=== PATIENT | female | born 1985 | race Caucasian/White ===

== ENCOUNTER 2017-01-07 05:46 | Emergency (ER) | payer SELFPAY ==
[2017-01-07 05:57] VITALS: BP 122/82; RESP 20
--- NOTE | 2017-01-07 06:06 | C.PDOC ---
History Of Present Illness patient yawned and dislocated her mandible., no trauma. Throbbing pain, unable to close her mouth Time Seen by Provider: 01/07/17 06:03 Chief Complaint (Nursing): Dental Pain History Per: Patient History/Exam Limitations: no limitations Onset/Duration Of Symptoms: Hrs Current Symptoms Are (Timing): Still Present Severity: Moderate Pain Scale Rating Of: 5 Quality: Positive for: Tightness Recent travel outside of the [place]: No Additional History Per: Family Past Medical History Reviewed: Historical Data, Nursing Documentation, Vital Signs Vital Signs: Last Vital Signs Temp 97.6 F 01/07/17 05:53 Pulse 81 01/07/17 05:53 Resp 20 01/07/17 05:53 BP 122/82 01/07/17 05:53 Pulse Ox 100 01/07/17 05:53 Family History: States: No Known Family Hx - Social History Hx Alcohol Use: No Hx Substance Use: No - Immunization History Hx Tetanus Toxoid Vaccination: No Hx Influenza Vaccination: No Hx Pneumococcal Vaccination: No Review Of Systems Constitutional: Negative for: Fever, Chills ENT: Positive for: Mouth Pain ED Course And Treatment O2 Sat by Pulse Oximetry: 100 Pulse Ox Interpretation: Normal Progress Note: under direct pressure applied by me, the mandible was redused in anatomical position. pt tolerated the procedure well Disposition Counseled Patient/Family Regarding: Studies Performed, Diagnosis, Need For Followup - Disposition Referrals: [facility] [Outside] [facility] [Outside] Disposition: HOME/ ROUTINE Disposition Time: 06:03 Condition: IMPROVED Instructions: Mandibular Dislocation (ED) - Clinical Impression Clinical Impression: Dislocated mandible
[2017-01-07 06:13] VITALS: PULSE 88; TEMP 98; O2SAT 97
== END 2017-01-07 06:23 | disposition home or self-care (01) ==
LOC: C.ER 05:46
DX: S03.00XA Dislocation of jaw, unspecified side, initial encounter (principal); X58.XXXA Exposure to other specified factors, initial encounter; Y92.009 Unspecified place in unspecified non-institutional (private) residence as the place of occurrence of the external cause

== ENCOUNTER 2017-09-21 10:38 | Emergency (ER) | payer OTHER ==
[2017-09-21 11:41] VITALS: BMI 32.4
--- NOTE | 2017-09-21 13:38 | US ---
PROCEDURE: Obstetrical ultrasound examination HISTORY: A1GDM, Limited care COMPARISON: Not available TECHNIQUE: Transabdominal FINDINGS: The examination demonstrates a single live intrauterine gestation in cephalic presentation. The heart rate is 132 beats per minute. A grossly normal quantity of amniotic fluid is visualized. A posterior placenta is identified. There is no evidence of placenta previa. The cervix measures 2.7 cm in length and is closed. biometry yields an average ultrasound age of 35 weeks 4 days. The ALLEN by ultrasound is 10/22/2017. ALLEN by LMP is 09/28/2017. The estimated weight is 2798 g. Limited review of anatomy demonstrates a 4 chamber heart. There is fluid distending the stomach and urinary bladder. Two normal kidneys are demonstrated. A three-vessel umbilical cord is identified. The anterior abdominal wall is intact. Biophysical profile examination yields a score of 8 out of 8. IMPRESSION: Single live intrauterine gestation of approximately 35 weeks 4 days. ALLEN 10/22/2017. EFW 04/21/1990 8 g. heart rate 132 beats per minute. Cervix 2.7 cm closed. No previa. Cephalic presentation. Posterior placenta. Biophysical profile score 8 out of 8.
--- NOTE | 2017-09-21 16:31 | OBHP ---
Datetime: 09/21/2017 11:45 IP Adm Impression: , intrauterine ; No Active Labor IP Admit Plan: Observation/Evaluation; Discharge home Admit Comment, IP Provider: This is a private patient of Dr. Justine Clark 31 y.o. , LMP 12/22/16, ALLEN 09/28/18, EGA 39, here for NST due to A1GDM. (+) AFM, denies L OF, VB, Ctx. care: Dr. Justine Clark x 2-3, previously Dr. Dawkins. Initial care, Maria Victoria - in the [facility], since 06/2017. Noted for GDM. 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 No h/o STIs or fibroids PMH: denies PSH: denies NKDA Meds: PNV Soc Hx: denies tobacco, illlicit drug or EtOH use. x 6 years. Unemployed. Fam Hx: Mother alive 55 - HTN.. Father alive 56 DM. No known fam h/o cancer. P.E.: as above. Obese, in NAD. Awake, alert, oriented to time, person and place. Pleasant and coop ertive. - F.S. at 1100 hors = 78mg/dL. Patient ate breakfsat at 0900 hours Assessment: 31 y.o. P1, 39w, AGDM - apparently well-controlled. Late to caer in the [place]. Category 1 tracing/ NST reactive. Patient is clinically stable. Plan: 1) OB ultrasound with BPP 2) Observe - as per Dr. Clark Addendum: 1335 hours - BPS 8/8 (AIDEE 13.02 cm); posterior placenta, EFW 2798 grams; cephalic. Plan: 1) Discharge patient home 2) Reviewed S/S laobr 3) Keep scheduled appointment 09/27/17 4) Anticipate IOL 09/28/17, if no spontaneous onset of labor - as per, and discussed with, Dr. Clark Pelvic Type - PN: Adequate Extremities - PN: Normal Abdomen - PN: Normal Back - PN: Normal Breast - PN: Not Done Lungs - PN: Normal Heart - PN: Normal Thyroid - PN: Not Done Neurologic - PN: Normal HEENT - PN: Normal General - PN: Normal Presentation-Admit: Vertex FHR - Baseline A Provider: 135 Membranes, Provider: Intact Contraction Comments Provider: irritability Comments, ACOG Physical Exam: Abdomen: Gravid; soft. non tender. Fundal height 40cm All other systems reviewed and are negative Gestation - Est Wks by US: 39.0 EGA AdmitDate IP: 39.0 Vital Signs Provider: Reviewed IP Chief Complaint: evaluation NICHD Variability Prov Fetus A: Moderate 6-25bpm NICHD Accel Fetus A IP Provider: 15X15 FHR Category Provider Fetus A: Category I NICHD Decel Fetus A IP Provider: None Dilatation, Provider: 0 Effacement, Provider: 0 Station, Provider: high Genitourinary Exam: Normal DTRs - PN: Not Done
[2017-09-21 17:44] VITALS: BP 117/62; PULSE 87; RESP 18; TEMP 97.9; O2SAT 96
== END 2017-09-21 13:32 | disposition home or self-care (01) ==
LOC: C.EROB 10:38
DX: Z36.89 Encounter for other specified antenatal screening (principal)

== ENCOUNTER 2017-09-28 07:42 | Inpatient (IN) | payer OTHER ==
[2017-09-29] MEDS ORDERED: Lactated Ringer's 1,000 ML IV SCH (11:30)
[2017-09-29 12:35] LABS: SQUAMOUS EPITHIAL 23 /hpf (0-5); URINE BACTERIA OCC (<OCC); URINE BILIRUBIN NEGATIVE (NEGATIVE); URINE BLOOD NEGATIVE (NEGATIVE); URINE CLARITY Hazy (Clear); URINE COLOR Yellow (YELLOW); URINE GLUCOSE (UA) NORMAL (Normal); URINE LEUKOCYTE ESTERASE TRACE Leu/uL (Negative); URINE NITRATE NEGATIVE (NEGATIVE); URINE PROTEIN NEGATIVE (NEGATIVE); URINE UROBILINOGEN NORMAL mg/dL (0.2-1.0)
[2017-09-29 12:40] LABS: BASO % 0.2 % (0.0-2.0); EOS # 0.1 K/uL (0.0-0.7); EOS % 0.8 % (0.0-4.0); HEMOGLOBIN 10.9 g/dL (11.0-16.0); LYMPH # 1.6 K/uL (1.0-4.3); LYMPH % 16.4 % (20.0-40.0); MEAN CELL VOLUME 88.1 fL (81.0-99.0); MEAN CORPUSCULAR HEMOGLOBIN 29.8 pg (27.0-31.0); MEAN CORPUSCULAR HGB CONC 33.9 g/dL (33.0-37.0); MEAN PLATELET VOLUME 9.5 fL (7.2-11.7); MONO # 0.6 K/uL (0.0-0.8); MONO % 5.6 % (0.0-10.0); NEUT # 7.7 K/uL (1.8-7.0); RBC 3.66 Mil/uL (3.80-5.20); RED CELL DISTRIBUTION WIDTH 14.9 % (11.5-14.5)
--- NOTE | 2017-09-29 12:54 | OBADHP ---
Datetime: 09/29/2017 12:45 IP Adm Impression Other: GDMA1 Admit Comment, IP Provider: 31yo with IUP at 40.1wks sent here for induction of labor by Dr Srikanth veronica for GDMA1 at term. Pt reports good movements, denies VB or LOF. Denies any current medica l problems. Previous uncomplicated vaginal delivery in [facility] in 2011. [place]- Q 5, FHR- Category 1, Cx-1-2/40-50/-3. Assessment: IUP at 40wks ,GDMA1 for Induction of labor. Plan as per Dr Clark. Admit to LND. Cervidil for cervical ripening. Monitor the progress of labor. Pelvic Type - PN: Adequate Extremities - PN: Normal Abdomen - PN: Normal Back - PN: Normal Breast - PN: Normal Lungs - PN: Normal Heart - PN: Normal Thyroid - PN: Normal Neurologic - PN: Normal HEENT - PN: Normal General - PN: Normal Presentation-Admit: Vertex FHR - Baseline A Provider: 130 Membranes, Provider: Intact Comments, ACOG Physical Exam: Abd: Soft, Nt, Bs - present Gestation - Est Wks by US: 40.0 Vital Signs Provider: Reviewed IP Chief Complaint: Scheduled induction of labor NICHD Variability Prov Fetus A: Moderate 6-25bpm NICHD Accel Fetus A IP Provider: 15X15 FHR Category Provider Fetus A: Category I NICHD Decel Fetus A IP Provider: None Dilatation, Provider: 1-2 Effacement, Provider: 40-50 Station, Provider: -3 Genitourinary Exam: Normal DTRs - PN: Normal EGA AdmitDate IP: 40.1 IP Adm Impression: Term, intrauterine ; No Active Labor IP Admit Plan: Admit to unit; Initiate labor induction protocol Datetime: 09/21/2017 11:45 Contraction Comments Provider: irritability
[2017-09-29 13:11] LABS: ALBUMIN 3.4 g/dL (3.5-5.0); ALT/SGPT 19 U/L (9-52); AST/SGOT 22 U/L (14-36); BLOOD UREA NITROGEN 11 mg/dL (7-17); CALCIUM 8.3 mg/dl (8.6-10.4); GFR AFRICAN-AMERICAN > 60; GFR NON-AFRICAN AMERICAN > 60
[2017-09-29 13:38] LABS: ALB/GLOB RATIO 1.1 (1.0-2.1)
[2017-09-29] MEDS ORDERED: Bupivacaine HCl 0.25% PF (10 ml) Inj ONE (15:17)
[2017-09-29] MEDS ORDERED: Bupivacaine HCl/FentaNYL Cit 100 ML EPI ONE (16:59)
[2017-09-29] MEDS ORDERED: Oxytocin 30 UNIT 30 UNITS/500 ML BAG IV SCH (18:15)
[2017-09-29] MEDS ORDERED: Oxytocin 30 UNIT 30 UNITS/500 ML BAG IV ONE (18:17)
[2017-09-29] MEDS ORDERED: Oxycodone/Acetaminophen 5/325 mg Tab PO PRN (19:34)
[2017-09-29] MEDS ORDERED: Benzocaine/Menthol 20%-0.5% Topical Spray (60 ml) TOP PRN (19:34)
--- NOTE | 2017-09-29 20:09 | OBDS ---
DELIVERY PERSONNEL Delivery Doctor: Annamaria Cavazos MD Real Estate Subagent: Ivett Carvalho RN Anesthesiologist: MATERNAL INFORMATION Medications in Delivery: PITOCIN Estimated Blood Loss (ml): 150 Placenta Cultured: No Maternal Complications: None RN Comments: LIVE BABY GIRL 9/9 SKIN TO SKIN DONE STARTED Provider Comments: NORMAL SPONTANEOUS VAGINAL DELIVERY TO A LIVE BABY GIRL WITH 9/9 FROM A LO A POSITION WITH 1ST DEGREE VAGINAL LACERATION AND REPAIR WITH CHROMIC 0 CATGUT SUTURES , UNDER A CONT INOUS EPIDURAL ANESTHESIA . EBL 150 CC. PLACENTA EXPELLED SPONTANEOUSLY COMPLETE. UTERUS IS FIRM AND HARD. LABOR SUMMARY EDC: 09/28/2017 00:00 No. Babies in Womb: 1 Attempted: No Labor Anesthesia: Epidural LABOR INFORMATION Onset of Labor: 09/29/2017 13:20 Complete Dilatation: 09/29/2017 19:05 Cervical Ripening Agents: Cervidil Group B Beta Strep: Negative Steroids Given: None Reason Steroids Not Administered: Not Applicable MEMBRANES Membranes Rupture Method: Artificial Rupture of Membranes: 09/29/2017 17:54 Length of Rupture (hrs): 1.45 Amniotic Fluid Color: Clear Amniotic Fluid Amount: Moderate Amniotic Fluid Odor: Normal STAGES OF LABOR Stage 1 hrs: 5 Stage 1 min: 45 Stage 2 hrs: 0 Stage 2 min: 16 Stage 3 hrs: 0 Stage 3 min: 2 Total Time in Labor hrs: 6 Total Time in Labor min: 3 VAGINAL DELIVERY Episiotomy: None Laceration Extension: First Degree Laceration Type: Vaginal Other Laceration: 2.0 CHROMIC Laceration Repair: Yes Initial Vag Sponge Count: 10 Final Vag Sponge Count: 10 Initial Vag Sharps Count: 0 BABY A INFORMATION Infant Delivery Date/Time: 09/29/2017 19:21 Method of Delivery: Vaginal Born in Route : No : N/A Forceps: N/A Vacuum Extraction: N/A Shoulder Dystocia : No SHOULDER DYSTOCIA BABY A Infant Delivery Date/Time: 09/29/2017 19:21 PRESENTATION/POSITION BABY A Presentation: Cephalic Cephalic Presentation: Vertex Vertex Position: Left Occipital Anterior Breech Presentation: N/A PLACENTA INFORMATION BABY A Placenta Delivery Time : 09/29/2017 19:23 Placenta Method of Delivery: Spontaneous Placenta Status: Delivered SCORES BABY A Heart Rate 1 min: >100 bpm Resp Effort 1 min: Good Cry Reflex Irritability 1 min: Cough or Sneeze or Pulls Away Muscle Tone 1 min: Active Motion Color 1 min: Body [place], Extremities Blue Resuscitation Effort 1 min: Tactile Stimulation SCORE 1 MIN: 9 Heart Rate 5 min: >100 bpm Resp Effort 5 min: Good Cry Reflex Irritability 5 min: Cough or Sneeze or Pulls Away Muscle Tone 5 min: Active Motion Color 5 min: Body [place], Extremities Blue Resuscitation Effort 5 min: Tactile Stimulation SCORE 5 MIN: 9 INFANT INFORMATION BABY A Gestational Age at Delivery: 40.1 Gestational Status: Term Infant Outcome : Liveborn Condition : Stable Infant Sex: Female IDENTIFICATION/MEDS BABY A ID Band Number: [id number] ID Band Location: Left Leg; Left Arm Sensor Applied: Yes Sensor Number: [id number] Sensor Location : Cord Clamp WEIGHT/LENGTH BABY A Infant Birthweight (gms): 3605 Weight (lb): 7 Weight (oz): 15 Infant Length Inches: 20.00 Infant Length cms: 50.8 CORD INFORMATION BABY A No. Cord Vessels: 3 Nuchal Cord : N/A Cord Blood Taken: Yes Suction: Mouth; Nose ASSESSMENT BABY A Infant Complications: None Physical Findings at Delivery: Within Normal Limits Infant Respirations: Appears Normal Drill Press Operator/ALS Called : No Care By: BISHOP TEMPLE Transferred To: Remains with Mother
[2017-09-30 07:33] LABS: HEMOGLOBIN 9.5 g/dL (11.0-16.0); MEAN CELL VOLUME 86.9 fL (81.0-99.0); MEAN CORPUSCULAR HGB CONC 34.5 g/dL (33.0-37.0); MEAN PLATELET VOLUME 9.4 fL (7.2-11.7); RBC 3.15 Mil/uL (3.80-5.20); RED CELL DISTRIBUTION WIDTH 15.3 % (11.5-14.5); WHITE BLOOD COUNT 12.3 K/uL (4.8-10.8)
--- NOTE | 2017-09-30 19:36 | OBPPN ---
Datetime: 09/30/2017 19:13 PP Pain Prov: Within normal limits PP Nausea Prov: Denies PP Flatus Prov: Yes PP BM Prov: No PP Breasts Prov: Normal PP Heart Prov: Normal PP Lungs Prov: Normal PP Abdomen/Uterus Prov: Normal PP Lochia Prov: Normal PP Vulva/Perineum Prov: Normal PP CVA Tenderness Prov: Normal PP Extremities Prov: Normal PP Progress Prov: Normal PP Impression Prov: Normal progression PP Plan Prov: Continue present management PP Progress Note Prov: 1ST DAY : AFEBRILE, AMBULATORY, REASTS FEEDING HER BABY, ABDOMEN IS SOFT, NO BM YET, LOCHIA MINIMAL. EXTREMITIES NO EDEMA, NO TENDERNESS. FOR DISCHARGED HOME IN AM. C ONTINUE VIT AND IRON,. TO THE OFFICE IN 4 WEEKS FOR CHECKUP/ IP PP Procedures: None Vital Signs Provider PP: Reviewed; Within Normal Limits
[2017-10-01 08:45] VITALS: RESP 18; TEMP 97.7; O2SAT 99
[2017-10-01] MEDS ORDERED: Influenza Vaccine 60 mcg/0.5 mL SYR (4YR UP) IM ONE (10:00)
[2017-10-01 19:33] VITALS: BP 99/62; PULSE 80
== END 2017-10-01 13:10 | disposition home or self-care (01) | DRG 372 ==
LOC: C.4D 09-29 10:47 → C.4M 09-29 21:47
PROVIDERS: ADMIT Obstetrics & Gynecology; ATTEND Obstetrics & Gynecology
PROC: 10E0XZZ Delivery of Products of Conception, External Approach (ICD-10-PCS; principal; 2017-09-29)
PROC: 0HQ9XZZ Repair Perineum Skin, External Approach (ICD-10-PCS; 2017-09-29)
DX: O24.420 Gestational diabetes mellitus in childbirth, diet controlled (principal); O70.0 First degree perineal laceration during delivery; Z37.0 Single live birth; Z3A.40 40 weeks gestation of pregnancy